=== PATIENT | female | born 1980 | race Caucasian/White ===

== ENCOUNTER 2017-06-24 07:26 | Emergency (ER) | payer OTHER ==
[~2017-06-24] VITALS: Ht 154.9 cm; Wt 53.1 kg
== END 2017-06-24 10:29 | disposition home or self-care (01) ==
LOC: ER 07:26
DX: K52.9 Noninfective gastroenteritis and colitis, unspecified (principal)

== ENCOUNTER 2018-07-04 00:40 | Emergency (ER) | payer OTHER ==
[~2018-07-04] VITALS: Ht 154.9 cm; Wt 50.3 kg
[2018-07-04] MEDS ORDERED: PYRIDIUM DS200 MG PO (05:15)
[2018-07-04] MEDS ORDERED: CIPRO500 MG PO (05:15)
== END 2018-07-04 05:21 | disposition home or self-care (01) ==
LOC: ER 00:40
DX: N39.0 Urinary tract infection, site not specified (principal)

== ENCOUNTER 2021-10-18 15:45 | Emergency (ER) | payer OTHER ==
[~2021-10-18] VITALS: Ht 154.9 cm; Wt 52.2 kg
[~2021-10-18 15:45] MED LIST: CIPRO500 MG PO; PYRIDIUM DS200 MG PO
[2021-10-18] MEDS ORDERED: ZITHROMAX500 MG PO (20:42)
== END 2021-10-18 20:52 | disposition home or self-care (01) ==
LOC: ER 15:45
DX: U07.1 COVID-19 (principal); A49.3 Mycoplasma infection, unspecified site